=== PATIENT | female | born 1950 | race Caucasian/White ===

== ENCOUNTER 2023-01-10 20:42 | Emergency (ER) | payer OTHER ==
[~2023-01-10] VITALS: Ht 162.6 cm; Wt 62.6 kg
[2023-01-10 21:40] VITALS: BP_SYST 163; PULSE 78; RESP 18; TEMP 96.4; O2SAT 98
[2023-01-10] MEDS ORDERED: IBUP-1969 PO (22:24)
[2023-01-10 23:15] VITALS: BP_SYST 160; PULSE 76; RESP 18; TEMP 97.9; O2SAT 98
== END 2023-01-10 23:15 | disposition home or self-care (01) ==
LOC: SED 20:42
DX: S82.002A Unspecified fracture of left patella, initial encounter for closed fracture (principal); Z79.899 Other long term (current) drug therapy; W18.30XA Fall on same level, unspecified, initial encounter; Y93.89 Activity, other specified; Y92.89 Other specified places as the place of occurrence of the external cause; Y99.8 Other external cause status
CPT/HCPCS: 73564; 99283